=== PATIENT | male | born 1960 | race Caucasian/White ===

== ENCOUNTER 2025-09-21 08:28 | Outpatient (CLI) | payer OTHER, SELFPAY ==
--- NOTE | ~2025-09-21 | CT_ITS ---
EXAMINATION:CT lung screening DATE: 09/21/2025 08:47 INDICATION: Personal history of nicotine dependence. TECHNIQUE: Computed tomography (CT) of the chest was performed without intravenous contrast. Automated exposure control and iterative reconstruction technique were employed. The dose-length product (DLP) was 274.90 mGy-cm. COMPARISON: None. FINDINGS: There is mild emphysema. A calcified left lung nodule and calcified left hilar lymph nodes are consistent with old granulomatous disease. No pleural effusion. The heart size is normal. There are coronary artery calcifications. No pericardial effusion. There is mild thoracic spondylosis. IMPRESSION: 1. Lung-RADS category 1: Negative. Continue annual screening with noncontrast low-dose chest CT in 12 months. Reviewed, dictated and finalized at location E. [facility]IST IMPRESSION: 1. Lung-RADS category 1: Negative. Continue annual screening with noncontrast l ow-dose chest CT in 12 months.
== END 2025-09-21 08:29 | disposition home or self-care (01) ==
PROVIDERS: PCP Nurse Practitioner Family; Visit Provider Nurse Practitioner Family
DX: Z12.2 Encounter for screening for malignant neoplasm of respiratory organs (principal); Z87.891 Personal history of nicotine dependence
CPT/HCPCS: 71271